=== PATIENT | female | born 1950 | race Caucasian/White ===

== ENCOUNTER → 2016-10-30 | Outpatient (CLI) | payer OTHER ==
[~2016-10-30] MED LIST: ASPIRIN E.C.81 M1 PO; Allegra PO; Ativan PO; CHEWABLE-VITE1 EACH PO; Milk Of Magnesia,MOM PO; Norvasc PO; ULTRAM50 MG PO
== END | disposition home or self-care (01) ==
LOC: RAD 08:40 → EDSTATUS 09:00 → RAD 09:00
PROC: 0JJTXZZ Inspection of Trunk Subcutaneous Tissue and Fascia, External Approach (ICD-10-PCS; principal; 2016-10-30)
DX: Z53.09 Procedure and treatment not carried out because of other contraindication (principal)
CPT/HCPCS: 76705

== ENCOUNTER 2017-08-26 07:33 | Day surgery (SDC) | payer OTHER ==
[~2017-08-26] VITALS: Ht 172.7 cm; Wt 129.2 kg
[~2017-08-26 07:33] MED LIST changes: +BENTYL20 MG PO
[2017-08-26 08:38] VITALS: BP 181/90
[2017-08-26] MEDS ORDERED: NORCO 5/3251 TABLET PO (11:54)
[2017-08-26 13:20] VITALS: BP 128/71
[2017-08-26 14:04] VITALS: BP 138/72
[2017-08-26 15:25] VITALS: BP 134/78
== END 2017-08-26 15:25 | disposition home or self-care (01) ==
LOC: SDC 07:33
PROC: 0FT44ZZ Resection of Gallbladder, Percutaneous Endoscopic Approach (ICD-10-PCS; principal; 2017-08-26)
DX: K80.10 Calculus of gallbladder with chronic cholecystitis without obstruction (principal); I10 Essential (primary) hypertension; E66.01 Morbid (severe) obesity due to excess calories; Z68.41 Body mass index [BMI] 40.0-44.9, adult; K21.9 Gastro-esophageal reflux disease without esophagitis; R73.03 Prediabetes; Z88.0 Allergy status to penicillin; Z88.2 Allergy status to sulfonamides
CPT/HCPCS: 88304; J0330; J2250; J2405; J2765; S0020